=== PATIENT | male | born 1985 | race Caucasian/White ===

== ENCOUNTER 2016-08-24 02:44 | Emergency (ER) | payer OTHER ==
[~2016-08-24] VITALS: Ht 177.8 cm; Wt 90.7 kg
[2016-08-24 02:45] VITALS: BP_SYST 136
[2016-08-24] MEDS ORDERED: BACITRACIN 1 GM OINT TP ONE ×2 (03:08→03:15)
[2016-08-24 03:24] VITALS: BP_SYST 136
== END 2016-08-24 03:24 ==
LOC: SED 02:44
DX: Z02.89 Encounter for other administrative examinations (principal)
CPT/HCPCS: 99283